=== PATIENT | female | born 1990 | race Two or more races ===

== ENCOUNTER 2020-04-08 17:49 | Emergency (ER) | payer SELFPAY ==
--- NOTE | 2020-04-08 17:53 | PDOC ---
Rapid Medical Evaluation Time Seen by Provider: 04/08/20 17:52 Medical Evaluation: 04/08/20 17:52 CC: iron fell on left ear Exam: noted dried blood to helix Plan: ft Discharge Disposition - Diagnosis Ear injury - Referrals - Patient Instructions - Post Discharge Activity
[2020-04-08 17:55] VITALS: BP 105/76; PULSE 76; TEMP 98.6; BMI 23.0
--- NOTE | 2020-04-08 18:39 | PDOC ---
History of Present Illness - General Chief Complaint: Injury Stated Complaint: L EAR INJURY Time Seen by Provider: 04/08/20 17:52 - History of Present Illness Initial Comments: 04/08/20 18:34 30-year-old female without comorbidities presents for evaluation of a laceration on her left ear. Patient is current on tetanus. Patient states the iron in her closet fell down and struck her ear when she open the closet. Bleeding was controlled with direct pressure. The arm did not strike her head. No post injury nausea vomiting or visual changes. She only has left ear pain. Past History - Medical History Allergies/Adverse Reactions: Allergies Allergy/AdvReac Type Severity Reaction Status Date / Time No Known Allergies Allergy Verified 04/08/20 17:54 COPD: No - Psycho-Social/Smoking History Smoking History: Never smoked Information on smoking cessation initiated: No - Substance Abuse Hx (Audit-C & DAST Scrn) How often the patient has a drink containing alcohol: Never Score: In Men: 4 or > Positive; In Women: 3 or > Positive: 0 Screen Result (Pos requires Nsg. Audit-10AR): Negative In the last yr the pt used illegal drug/Rx for NonMed reason: No Score: Yes response is considered Positive: 0 Screen Result (Positive result requires Nsg. DAST-10): Negative Review of Systems - Review of Systems HEENTM: Yes: Ear Pain *Physical Exam - Vital Signs Last Vital Signs Temp Pulse Resp BP Pulse Ox 98.6 F 76 19 105/76 99 04/08/20 17:52 04/08/20 17:52 04/08/20 17:52 04/08/20 17:52 04/08/20 17:52 - Physical Exam 04/08/20 18:36 GENERAL: The patient is awake, alert, and fully oriented, in no acute distress. HEAD: Normal with no signs of trauma. EYES: sclera anicteric, conjunctiva clear. ENT: Ears normal tympanic membranes normal oropharynx clear uvula midline; There is a 2 cm laceration on the helix of the left ear extending proximally to distally. NECK: Normal range of motion LUNGS: Breath sounds equal, clear to auscultation bilaterally. No wheezes, and no crackles. HEART: S1 and S2 without murmur, rub or gallop. ABDOMEN: Soft, nontender, normoactive bowel sounds. No guarding, no rebound. No masses. EXTREMITIES: Normal range of motion, no edema. No clubbing or cyanosis. No cords, erythema, or tenderness. NEUROLOGICAL: Cranial nerves II through XII grossly intact. PSYCH: Normal mood, normal affect. SKIN: Warm, Dry, normal turgor, no rashes or lesions noted. Medical Decision Making - Medical Decision Making 04/08/20 18:36 The wound was anesthetized with 1% lidocaine without epinephrine. Explored to its base in a bloodless field without any identification of foreign body. Copiously irrigated with normal saline. Edges approximated using 5-0 nylon 3 simple sutures interrupted . Dry sterile dressing was placed. Discharge - Discharge Information Problems reviewed: Yes Clinical Impression/Diagnosis: Ear injury, Laceration of ear Clinical Impression/Diagnosis: (Ruled Out): Ear lobe laceration Condition: Stable Disposition: HOME - Admission No - Follow up/Referral Referrals: Jefferson Castellano MD [Staff Physician] - - Patient Discharge Instructions Additional Instructions: Please keep the dressing on for the next 48 hours. After 48 hours you may remove the dressing wash the area with soap and water and leave it open to air. If you must work please cover the area with a dry sterile dressing such as a large Band-Aid. Keep the area open to air as much as possible. Return to the emergency room for any worsening symptoms or concern for infection such as redness, swelling, increasing pain, or drainage. Other than that sutures out in 7-10 days Tylenol and Motrin as directed for pain. Return to the emergency room in 48 hours for a wound check. Please follow-up with plastic surgery in 1 to 2 days without fail. Sutures must be removed 7 to 10 days - Post Discharge Activity
== END 2020-04-08 18:44 | disposition home or self-care (01) ==
LOC: JERFT 17:49
PROC: 0HQ3XZZ Repair Left Ear Skin, External Approach (ICD-10-PCS; principal; 2020-04-08)
DX: S01.312A Laceration without foreign body of left ear, initial encounter (principal); W26.8XXA Contact with other sharp object(s), not elsewhere classified, initial encounter
CPT/HCPCS: 99282-25

== ENCOUNTER 2020-04-15 15:44 | Emergency (ER) | payer SELFPAY ==
--- NOTE | 2020-04-15 16:07 | PDOC ---
Rapid Medical Evaluation Time Seen by Provider: 04/15/20 16:06 Medical Evaluation: Allergies Allergy/AdvReac Type Severity Reaction Status Date / Time No Known Allergies Allergy Verified 04/08/20 17:54 04/15/20 16:06 Pt presents to have the sutures removed from her L ear placed one week. Exam: [address] to the L ear Orders: nothing Pt to proceed to the ER for further evaluation Discharge Disposition - Diagnosis Visit for suture removal - Referrals - Patient Instructions - Post Discharge Activity
[2020-04-15 16:09] VITALS: BP 111/73; PULSE 85; TEMP 98.6; BMI 17.6
--- NOTE | 2020-04-15 16:26 | PDOC ---
History of Present Illness - General Chief Complaint: Suture/Staple Removal(Here) Stated Complaint: SUTURE REMOVAL Time Seen by Provider: 04/15/20 16:06 History Source: Patient Exam Limitations: No Limitations - History of Present Illness Initial Comments: 04/15/20 16:06 Patient is a 30-year-old female who presents to the ED for suture removal of the left ear. She states she had sutures placed 7 days ago. She denies any bleeding or drainage. She denies any complaints. The patient states she believes the wound is well-healing. Past History - Medical History Allergies/Adverse Reactions: Allergies Allergy/AdvReac Type Severity Reaction Status Date / Time No Known Allergies Allergy Verified 04/08/20 17:54 COPD: No - Psycho-Social/Smoking History Smoking History: Never smoked - Substance Abuse Hx (Audit-C & DAST Scrn) How often the patient has a drink containing alcohol: Never Score: In Men: 4 or > Positive; In Women: 3 or > Positive: 0 Screen Result (Pos requires Nsg. Audit-10AR): Negative Review of Systems - Review of Systems Comments:: 04/15/20 16:28 - Review of Systems Able to Perform ROS?: Yes Constitutional: No: Fever, Chills, Loss of Appetite, Night Sweats, Weakness HEENTM: No: Eye Pain, Vision changes, Ear Pain, Throat Pain, Throat Swelling, Mouth Pain, Difficulty Swallowing Respiratory: No: Cough, Shortness of Breath, Wheezing, Sputum Production Cardiac (ROS): No: Chest Pain, Chest Tightness, Palpitations, Irregular Heart Beat, Edema ABD/GI: No: Nausea, Vomiting, Abdominal Pain, Diarrhea : No Dysuria, No Hematuria, No Frequency, No Urgency Musculoskeletal: No: Muscle Pain, Back Pain, Joint Pain, Muscle Weakness, Neck Pain Integumentary: No: Lesions, Rash; positive: Left ear suture removal Neurological: No: Headache, Numbness, Tingling, Weakness, Speech Difficulties *Physical Exam - Vital Signs Last Vital Signs Temp Pulse Resp BP Pulse Ox 98.6 F 85 20 111/73 100 04/15/20 16:07 04/15/20 16:07 04/15/20 16:07 04/15/20 16:07 04/15/20 16:07 - Physical Exam 04/15/20 16:29 - Physical Exam General Appearance: Nourished, Appropriately Dressed, No Distress HEENT: EOMI, Normal Voice, Hearing Grossly Normal Neck: Supple, No Lymphadenopathy (R), No Lymphadenopathy (L), No Rigidity, No Decreased range of motion Respiratory/Chest: Lungs Clear, Normal Breath Sounds. No Respiratory Distress, No Accessory Muscle Use Cardiovascular: Regular Rhythm, Regular Rate, S1, S2 Musculoskeletal: Normal Inspection. No Decreased Range of Motion Extremity: Normal Capillary Refill, Normal Inspection Integumentary: Normal Color, Dry. No Rash; [address] to the left pinna and is well-healing. There is no drainage or sign of infection. Neurologic: tree cutter II-XII NML intact, Fully Oriented, Alert, Normal Mood/Affect, Normal Response Medical Decision Making - Medical Decision Making 04/15/20 16:24 Assessment: Patient is a 30-year-old female who presents to the ED for suture removal of the left ear. Plan: -3 sutures removed from the left pinna without complication. -Patient has been given follow-up wound care instructions. -She can follow-up with her primary doctor within 2 days for repeat evaluation -She understands and agrees with this treatment plan and she is stable for discharge. Discharge - Discharge Information Problems reviewed: Yes Clinical Impression/Diagnosis: Visit for suture removal Condition: Stable Disposition: HOME - Follow up/Referral - Patient Discharge Instructions Patient Printed Discharge Instructions: DI for Suture Removal Additional Instructions: Keep the wound clean and dry. You can wash the wound once daily with warm water and soap. Allow the wound and scab to heal completely prior to putting any scar cream on the wound. Avoid soaking the wound such as swimming underwater for at least another 2 weeks. - Post Discharge Activity Work/Back to School Note: Back to Work
== END 2020-04-15 16:30 | disposition home or self-care (01) ==
LOC: JERFT 15:44 → JER 15:44 → JERFT 16:30
DX: Z48.02 Encounter for removal of sutures (principal)
CPT/HCPCS: 99281-25

== ENCOUNTER 2020-12-26 20:51 | Emergency (ER) | payer OTHER ==
[2020-12-26 20:57] VITALS: BP 113/73; PULSE 81; TEMP 98; BMI 22.6
== END 2020-12-26 23:16 | disposition home or self-care (01) ==
LOC: JERFT 20:51 → JER 20:51 → JERFT 23:16
DX: H72.91 Unspecified perforation of tympanic membrane, right ear (principal)
CPT/HCPCS: 99283-25